=== PATIENT | female | born 1995 | race Caucasian/White ===

== ENCOUNTER 2017-12-15 17:49 | Emergency (ER) | payer SELFPAY ==
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
[2017-12-15 20:58] VITALS: BP 122/72
== END 2017-12-15 20:56 | disposition home or self-care (01) ==
LOC: ED 17:49
DX: S09.90XA Unspecified injury of head, initial encounter (principal); W50.0XXA Accidental hit or strike by another person, initial encounter; Y92.9 Unspecified place or not applicable
CPT/HCPCS: 99282